=== PATIENT | male | born 1945 | race Caucasian/White ===

== ENCOUNTER 2025-03-29 13:22 | Outpatient (CLI) | payer MEDICARE ==
--- NOTE | 2025-03-29 15:42 | ELECTROCARDIOGRAPH REPORT ---
[facility] Test Date: 2025-03-29 Test Time: 13:53:17 Pat Name: IVÁN HODGSON Department: PRE/OP CARDIOLOGY Room: Gender: M Tacker Off: : 1945 Requested By: EVER RUBIN Order Number: [id number] Reading MD: Dr. HERNAN Metz Measurements Intervals [place] Rate: 50 P: 36 [place]: 201 QRS: -55 QRSD: 113 T: 62 QT: 427 QTc: 390 Interpretive Statements Sinus bradycardia LAD, consider left anterior fascicular block Abnormal R-wave progression, late transition Left ventricular hypertrophy Anterior ST elevation, probably due to LVH Electronically Signed On 03-29-2025 16:33:[address] HERNAN Metz Please click the below link to view image of tracing.
== END 2025-03-29 23:59 | disposition home or self-care (01) ==
LOC: RAD 13:22
PROVIDERS: ATTEND Orthopaedic Surgery Adult Reconstructive Orthopaedic Surgery
DX: Z01.810 Encounter for preprocedural cardiovascular examination (principal); I44.4 Left anterior fascicular block; I50.1 Left ventricular failure, unspecified; R94.31 Abnormal electrocardiogram [ECG] [EKG]; R00.1 Bradycardia, unspecified
CPT/HCPCS: 93005